=== PATIENT | female | born 1965 | race Caucasian/White ===

== ENCOUNTER 2018-11-02 08:00 | Observation (INO) ==
[2018-11-02] MEDS ORDERED: 0.9 % Sodium Chloride 500 ML IVC ONE (08:26)
[2018-11-02] MEDS ORDERED: Aspirin 81 MG TAB.CHEW PO ONE (08:26)
--- NOTE | 2018-11-02 08:30 | Emergency Department Note ---
Disposition Clinical Impression: Chest pain Qualifiers: Chest pain type: unspecified Qualified Code(s): R07.9 - Chest pain, unspecified Disposition: Admitted As Inpatient Condition: Fair Referrals: Ayan Muñiz MD [Primary Care Provider] - Forms: ED Satisfaction Letter Time of Disposition: 10:51 General Adult HPI - General Chief complaint: ED Chest Pain Stated complaint: "chest pressure", DEBRA,V/D Time Seen by Provider: 11/02/18 08:02 Source: patient Mode of arrival: ambulatory Limitations: no limitations Nursing Notes Reviewed: Yes Vital Signs Reviewed: Yes - History of Present Illness HPI Narrative: 53-year-old female history of lupus, prediabetes, hypertension persists for evaluation of chest pain. Patient states she has had a prodromal GI illness with vomiting and diarrhea over the past 3 days but did note this morning that she developed some chest pain. Describes as pressure with intermittent episodes of heaviness. Located in the anterior part of her chest without radiation. Patient denies any diaphoresis. Patient denies any fevers or cough. Patient does state she had an episode of emesis. Patient denies a history of heart disease but does have a family history where her father had a heart attack at the age of 52. Patient denies a history of recent travel DVT or PE. Denies any active cancers. Pain Scale: 8 - Related Data Previous Rx's Medication Instructions Recorded predniSONE [PredniSONE] 0 mg PO DAILY #15 tablet 05/17/17 Ciprofloxacin [Cipro] 500 mg PO BID #14 tablet 07/04/17 Phenazopyridine HCl [Pyridium] 200 mg PO TIDAC #6 tab 07/04/17 Phenazopyridine HCl [Pyridium] 200 mg PO TIDAC PRN #6 tab 04/24/18 Allergies Allergy/AdvReac Type Severity Reaction Status Date / Time Erythromycin Base Allergy Hives Verified 11/02/18 08:07 meperidine [From Demerol] Allergy Hallucinati Verified 11/02/18 08:07 ng tramadol Allergy Confusion Verified 11/02/18 08:07 All systems ED: reviewed and negative except as stated. Constitutional: Denies: fever Cardiovascular: Reports: chest pain Respiratory: Denies: cough, dyspnea Gastrointestinal: Denies: abdominal pain, nausea, vomiting Past Medical History - Past Medical History Source: patient Medical history: Reports: non-contributory Surgical history: Reports: non-contributory Psychiatric history: Reports: no psych history FREELANCE RECRUITER history: Reports: no FREELANCE RECRUITER history - Social History Smoking Status: Never smoker Smokeless Tobacco Status: No Alcohol use: Reports: none Drug use: Reports: none Physical Exam - General Limitations: no limitations General appearance: alert, in no apparent distress, obese - Head Head exam: atraumatic, normocephalic, normal inspection - Eye Eye exam: Present: normal appearance, PERRL, EOMI - ENT ENT exam: normal exam - Neck Neck exam: Present: normal inspection - Chest Chest inspection: Present: normal inspection, symmetric chest wall rise - Respiratory Respiratory exam: Present: normal lung sounds bilaterally. Absent: respiratory distress - Cardiovascular Cardiovascular exam: Present: regular rate, normal rhythm. Absent: normal heart sounds - Abdominal Exam Abdominal exam: Present: soft, Non-Tender - Extremities Exam Extremities exam: Present: normal inspection. Absent: pedal edema - Back Exam Back exam: Present: normal inspection - Neurological Exam Neurological exam: Present: alert, oriented X3, CN II-XII intact - Skin Skin exam: Present: warm, dry, intact, normal color Course Course Narrative: Patient seen and examined. Patient will get basic Levi pulmonary screening labs. Patient is deemed low risk for DVT and/or PE. Patient's history is most consistent with ACS. Patient is 100% on room air. - Reevaluation(s) Reevaluation #1: Patient did get 1 nitroglycerin which did not improve her chest pain. Patient's agreeable with admission. Time: 10:12 Reevaluation #2: Patient is complaining of abdominal cramping. Nontender abdominal exam. Time: 10:21 Vital Signs Temperature 98.2 F 11/02/18 08:07 Pulse Rate 77 11/02/18 08:07 Respiratory Rate 15 11/02/18 08:07 Blood Pressure 163/101 11/02/18 08:07 Temperature 98.2 F 11/02/18 08:19 Pulse Rate 68 11/02/18 09:56 Respiratory Rate 20 11/02/18 09:56 Blood Pressure 133/67 11/02/18 09:56 O2 Sat by Pulse Oximetry 99 11/02/18 09:56 Oxygen Delivery Oxygen Delivery Room Air Medical Decision Making - [facility] Narrative Medical decision making narrative: Patient presents for a violation of chest pressure. Patient does have risk factors including lupus, diabetes and hypertension. As well as obesity and early family history. Patient's EKG was nonspecific. Initial troponin negative. Given the patient's moderate heart score the patient be admitted for continued evaluation. There is no concerns or suspicion of PE. Patient's pain appears to be more consistent with unstable angina. Patient's not hypoxic. Patient has no significant risk factors for PE in the acute setting. - Lab Data Lab results reviewed: Yes I reviewed the patient's lab results. Result diagrams: 11/02/18 08:36 11/02/18 08:36 Lab Results 11/02/18 11/02/18 11/02/18 Range/Units 08:26 08:26 08:36 WBC 5.2 (4.3-11.1) K/mcL RBC 4.58 (3.82-4.97) M/mcL Hgb 14.6 (11.5-15.4) g/dL Hct 43.7 (35.3-44.9) % MCV 95.4 (83.0-100.0) fL MCH 31.9 (28.0-33.3) pg MCHC 33.4 (31.6-35.5) g/dL RDW 14.0 (11.5-14.5) % Plt Count 178 (140-400) K/mcL MPV 11.6 (9.4-12.4) fL Immature Gran % 0.2 (0-4) % Seg Neutrophils % 57.5 % Lymphocytes % 29.8 % Monocytes % 7.9 % Eosinophils % 4.2 % Basophils % 0.4 % Neutrophils # 3.0 (1.6-8.9) K/mcL Lymphocytes # 1.6 (0.6-4.6) K/mcL Monocytes # 0.4 (0.0-1.3) K/mcL Eosinophils # 0.2 (0.0-0.6) K/mcL Basophils # 0.0 (0.0-0.2) K/mcL PT 10.6 (9.4-12.1) Seconds INR 0.9 APTT 21.3 L (26.0-36.0) Seconds Sodium (136-145) mEq/L Potassium (3.5-5.1) mEq/L Chloride (98-107) mEq/L Carbon Dioxide (23-29) mEq/L BUN (6-20) mg/dL Creatinine (0.60-1.20) mg/dL Est GFR ( Amer) (> 60) Est GFR (Non-Af Amer) (> 60) BUN/Creatinine Ratio (6-26) Glucose (70-105) mg/dL Calculated Osmolality (280-300) Calcium (8.6-10.3) mg/dL Troponin I (< 0.04) ng/mL B-Natriuretic Peptide 17 (Less than 100) pg/mL Lipase (11-82) Units/L 11/02/18 Range/Units 08:36 WBC (4.3-11.1) K/mcL RBC (3.82-4.97) M/mcL Hgb (11.5-15.4) g/dL Hct (35.3-44.9) % MCV (83.0-100.0) fL MCH (28.0-33.3) pg MCHC (31.6-35.5) g/dL RDW (11.5-14.5) % Plt Count (140-400) K/mcL MPV (9.4-12.4) fL Immature Gran % (0-4) % Seg Neutrophils % % Lymphocytes % % Monocytes % % Eosinophils % % Basophils % % Neutrophils # (1.6-8.9) K/mcL Lymphocytes # (0.6-4.6) K/mcL Monocytes # (0.0-1.3) K/mcL Eosinophils # (0.0-0.6) K/mcL Basophils # (0.0-0.2) K/mcL PT (9.4-12.1) Seconds INR APTT (26.0-36.0) Seconds Sodium 141 (136-145) mEq/L Potassium 4.3 (3.5-5.1) mEq/L Chloride 108 H (98-107) mEq/L Carbon Dioxide 25 (23-29) mEq/L BUN 7 (6-20) mg/dL Creatinine 0.92 (0.60-1.20) mg/dL Est GFR ( Amer) > 60 (> 60) Est GFR (Non-Af Amer) > 60 (> 60) BUN/Creatinine Ratio 8 (6-26) Glucose 131 H (70-105) mg/dL Calculated Osmolality 292 (280-300) Calcium 9.6 (8.6-10.3) mg/dL Troponin I < 0.03 (< 0.04) ng/mL B-Natriuretic Peptide (Less than 100) pg/mL Lipase 25 (11-82) Units/L - Radiology Data Radiology results reviewed: Yes I reviewed the patient's radiology results. Chest X-Ray 11/02/18 08:26 IMPRESSION: No acute cardiopulmonary disease D/ / Mynor Almanzar MD / Mynor Almanzar MD Interpreting Provider: Mynor Almanzar MD - EKG Data EKG #1 EKG attestation: Yes I reviewed and interpreted this EKG. EKG shows normal: sinus rhythm Rate: normal Rhythm: NSR [place]/QRS: left axis deviation T wave inversions noted in: III (FLATTENED), aVF (FLATTENED) Jose Miguel - Jose Miguel Situation: Demographics Background: Presenting Complaint Assessment: Vital Signs, Course and respsone to treatment, Patient/Family Ex pectation Recommendation: Barrier(s) to disposition, Recommendation based on pending studies, treatments, or consults Jose Miguel Report Given to: Hospitalist Jose Miguel Repor Time: 10:51 Heart Score - Score History: Moderately Suspicious Age: 45-65 Risk Factors: 1-2 risk factors Troponin: Less than normal limit
[2018-11-02 09:07] LABS: Basophils % 0.4 %; Eosinophils # 0.2 K/mcL (0.0-0.6); Eosinophils % 4.2 %; Hematocrit 43.7 % (35.3-44.9); Hemoglobin 14.6 g/dL (11.5-15.4); Immature Granulocytes % 0.2 % (0-4); Lymphocytes # 1.6 K/mcL (0.6-4.6); Lymphocytes % 29.8 %; Mean Corpuscular HGB Conc 33.4 g/dL (31.6-35.5); Mean Corpuscular Hemoglobin 31.9 pg (28.0-33.3); Mean Corpuscular Volume 95.4 fL (83.0-100.0); Mean Platelet Volume 11.6 fL (9.4-12.4); Monocytes # 0.4 K/mcL (0.0-1.3); Monocytes % 7.9 %; Platelet Count 178 K/mcL (140-400); Red Blood Count 4.58 M/mcL (3.82-4.97); Segmented Neutrophils % 57.5 %
[2018-11-02] MEDS: Nitroglycerin 0.4 MG TAB.SUBL SL PRN ×5 (09:24→15:49)
[2018-11-02 09:25] LABS: BUN/Creatinine Ratio 8 (6-26); Blood Urea Nitrogen 7 mg/dL (6-20); Calcium 9.6 mg/dL (8.6-10.3); Carbon Dioxide 25 mEq/L (23-29); Chloride 108 mEq/L (98-107); Glucose 131 mg/dL (70-105); Lipase 25 Units/L (11-82); Osmolality,Calculated 292 (280-300); Potassium 4.3 mEq/L (3.5-5.1); Sodium 141 mEq/L (136-145); Troponin I < 0.03 ng/mL (< 0.04); eGFR For Non-African Americans > 60 (> 60)
--- NOTE | 2018-11-02 10:00 | Emergency Department Note ---
Disposition Clinical Impression: Chest pain Qualifiers: Chest pain type: unspecified Qualified Code(s): R07.9 - Chest pain, unspecified Disposition: Admitted As Inpatient Condition: Fair Time of Disposition: 14:18 General Adult HPI - General Chief complaint: ED Chest Pain Stated complaint: "chest pressure", DEBRA,V/D Time Seen by Provider: 11/02/18 08:02 Source: patient Mode of arrival: ambulatory Limitations: no limitations - History of Present Illness Pain Scale: 0 - Related Data Previous Rx's Medication Instructions Recorded predniSONE [PredniSONE] 0 mg PO DAILY #15 tablet 05/17/17 Ciprofloxacin [Cipro] 500 mg PO BID #14 tablet 07/04/17 Phenazopyridine HCl [Pyridium] 200 mg PO TIDAC #6 tab 07/04/17 Phenazopyridine HCl [Pyridium] 200 mg PO TIDAC PRN #6 tab 04/24/18 Allergies Allergy/AdvReac Type Severity Reaction Status Date / Time Erythromycin Base Allergy Hives Verified 11/02/18 08:07 meperidine [From Demerol] Allergy Hallucinati Verified 11/02/18 08:07 ng tramadol Allergy Confusion Verified 11/02/18 08:07 Constitutional: Denies: fever Cardiovascular: Reports: chest pain Respiratory: Denies: cough, dyspnea Gastrointestinal: Denies: abdominal pain, nausea, vomiting Past Medical History - Past Medical History Medical history: Reports: non-contributory Surgical history: Reports: non-contributory Psychiatric history: Reports: no psych history ANAESTHESIOLOGIST history: Reports: no ANAESTHESIOLOGIST history - Social History Smoking Status: Never smoker Smokeless Tobacco Status: No Alcohol use: Reports: none Drug use: Reports: none Physical Exam - General Limitations: no limitations General appearance: alert, in no apparent distress, obese Course Vital Signs Temperature 98.2 F 11/02/18 08:07 Pulse Rate 77 11/02/18 08:07 Respiratory Rate 15 11/02/18 08:07 Blood Pressure 163/101 11/02/18 08:07 Temperature 97.9 F 11/02/18 14:03 Pulse Rate 59 11/02/18 14:03 Respiratory Rate 15 11/02/18 14:03 Blood Pressure 124/74 11/02/18 14:03 O2 Sat by Pulse Oximetry 94 11/02/18 14:03 Oxygen Delivery Oxygen Delivery Room Air Medical Decision Making - Lab Data Result diagrams: 11/02/18 08:36 11/02/18 08:36 Lab Results 11/02/18 11/02/18 11/02/18 Range/Units 08:26 08:26 08:36 WBC 5.2 (4.3-11.1) K/mcL RBC 4.58 (3.82-4.97) M/mcL Hgb 14.6 (11.5-15.4) g/dL Hct 43.7 (35.3-44.9) % MCV 95.4 (83.0-100.0) fL MCH 31.9 (28.0-33.3) pg MCHC 33.4 (31.6-35.5) g/dL RDW 14.0 (11.5-14.5) % Plt Count 178 (140-400) K/mcL MPV 11.6 (9.4-12.4) fL Immature Gran % 0.2 (0-4) % Seg Neutrophils % 57.5 % Lymphocytes % 29.8 % Monocytes % 7.9 % Eosinophils % 4.2 % Basophils % 0.4 % Neutrophils # 3.0 (1.6-8.9) K/mcL Lymphocytes # 1.6 (0.6-4.6) K/mcL Monocytes # 0.4 (0.0-1.3) K/mcL Eosinophils # 0.2 (0.0-0.6) K/mcL Basophils # 0.0 (0.0-0.2) K/mcL PT 10.6 (9.4-12.1) Seconds INR 0.9 APTT 21.3 L (26.0-36.0) Seconds Sodium (136-145) mEq/L Potassium (3.5-5.1) mEq/L Chloride (98-107) mEq/L Carbon Dioxide (23-29) mEq/L BUN (6-20) mg/dL Creatinine (0.60-1.20) mg/dL Est GFR ( Amer) (> 60) Est GFR (Non-Af Amer) (> 60) BUN/Creatinine Ratio (6-26) Glucose (70-105) mg/dL Calculated Osmolality (280-300) Calcium (8.6-10.3) mg/dL Troponin I (< 0.04) ng/mL B-Natriuretic Peptide 17 (Less than 100) pg/mL Lipase (11-82) Units/L 11/02/18 Range/Units 08:36 WBC (4.3-11.1) K/mcL RBC (3.82-4.97) M/mcL Hgb (11.5-15.4) g/dL Hct (35.3-44.9) % MCV (83.0-100.0) fL MCH (28.0-33.3) pg MCHC (31.6-35.5) g/dL RDW (11.5-14.5) % Plt Count (140-400) K/mcL MPV (9.4-12.4) fL Immature Gran % (0-4) % Seg Neutrophils % % Lymphocytes % % Monocytes % % Eosinophils % % Basophils % % Neutrophils # (1.6-8.9) K/mcL Lymphocytes # (0.6-4.6) K/mcL Monocytes # (0.0-1.3) K/mcL Eosinophils # (0.0-0.6) K/mcL Basophils # (0.0-0.2) K/mcL PT (9.4-12.1) Seconds INR APTT (26.0-36.0) Seconds Sodium 141 (136-145) mEq/L Potassium 4.3 (3.5-5.1) mEq/L Chloride 108 H (98-107) mEq/L Carbon Dioxide 25 (23-29) mEq/L BUN 7 (6-20) mg/dL Creatinine 0.92 (0.60-1.20) mg/dL Est GFR ( Amer) > 60 (> 60) Est GFR (Non-Af Amer) > 60 (> 60) BUN/Creatinine Ratio 8 (6-26) Glucose 131 H (70-105) mg/dL Calculated Osmolality 292 (280-300) Calcium 9.6 (8.6-10.3) mg/dL Troponin I < 0.03 (< 0.04) ng/mL B-Natriuretic Peptide (Less than 100) pg/mL Lipase 25 (11-82) Units/L Attestation Statement - Attestation Attestation: I examined this patient and my medical decision-making was reviewed with the Resident Physician. I agree with the documented findings, disposition and treatment plan as described except to the extent set forth below. 53 year old female presents to the eD with complaints of chest pain and has a moderate risk heart score in addition to negative troponin, non ischemic ekg. Will admit to medicine for cp r/o ACS
--- NOTE | 2018-11-02 14:21 | Internal Med History&Physical ---
Date of Encounter: 12/03/18 Time of Encounter: 11:00 Internal Medicine - H&P: HPI Chief complaint: CP History of present illness: 53-year-old female history of lupus, prediabetes, hypertension who presented to the ER for further evaluation of chest pain The patient is stated that she started having some nausea associated with vomiting over the last 3 days, however she developed this morning shows intermittent episode of chest pressure. the patient is located at the mid chest was not radiation. the patient denied diaphoresis, palpitation, orthopnea, paroxysmal nocturnal dyspnea or worsening lower extremity edema. the patient denies history of coronary artery disease however she reported that her father due to heart at thatage of 52. the patient was evaluated by the ER staff and had an first cardiac enzyme set was no significant abnormality as well as a EKG was significant ST-T wave changes. Past Med Surg Social Fam HX - Past Medical History Medical history: diabetes Additional medical history: liver enzymes "off". pre diabetic. lupus Psychiatric history: no psych history - Past Surgical History Surgical History: cholecystectomy - Social History Smoking Status: Never smoker Smokeless Tobacco Status: No Alcohol use: none Drug use: none - Family History Father Living Status: Hx Family Cardiac Disorders: Yes (ND) Hx Family Endocrine Disorder: Yes (DM) Internal Medicine - H&P: Meds Amitriptyline [Elavil] 25 mg PO HS 11/02/18 [History] Aspirin 81 mg PO DAILY 11/02/18 [History] Azelastine 0.1% Nasal [place] [Astelin] 1 spr NS BID 11/02/18 [History] Cetirizine HCl [24Hour Allergy] 10 mg PO DAILY 11/02/18 [History] Diclofenac Sodium 2 - 3 gm TP BID PRN 11/02/18 [History] Lisinopril [Zestril] 10 mg PO DAILY 11/02/18 [History] Montelukast [Singulair] 10 mg PO DAILY 11/02/18 [History] Paroxetine [Paxil] 20 mg PO DAILY 11/02/18 [History] metFORMIN [Glucophage] 500 mg PO BIDWM 11/02/18 [History] Fluticasone Propionate Nasal [Flonase] 1 spr NS BID 11/03/18 [History] Omeprazole [PriLOSEC] 40 mg PO BID #60 capsule. 11/04/18 [Rx] Allergy/AdvReac Type Severity Reaction Status Date / Time Erythromycin Base Allergy Hives Verified 11/03/18 23:19 meperidine [From Demerol] Allergy Hallucinati Verified 11/03/18 23:19 ng tramadol Allergy Confusion Verified 11/03/18 23:19 itching anaphalaxis All Systems PM: A 10-system review of systems was performed and is negative for pertinent findings except as documented above in the HPI. - Constitutional Vitals: Temp Pulse Resp BP Pulse Ox 97.9 F 59 15 124/74 94 11/02/18 14:03 11/02/18 14:03 11/02/18 14:03 11/02/18 14:03 11/02/18 14:03 Exam: As below - Head Head exam: Present: atraumatic, normocephalic - Eye Eye exam: Present: PERRL, conjuntiva pink, sclera anicteric Pupils: Present: PERRL - Neck Neck exam general surgery: Present: supple, trachea midline. Absent: lymphadenopathy - Respiratory Respiratory exam: Present: CTAB. Absent: accessory muscle use, rales, rhonchi, wheezes - Cardiovascular Cardiovascular exam: Present: RRR, +S1, +S2. Absent: diastolic murmur, gallop, rubs, systolic murmur - GI/Abdominal GI/Abdominal exam: Present: normal bowel sounds, soft, no peritoneal signs. Absent: distended, tenderness - Extremities Exam Extremities exam: Present: warm, radial pulses palpable and symmetrical. Absent: calf tenderness, cyanotic, pedal edema - Neurological Exam Neurological exam: Present: CN II-XII intact, oriented X3, no focal deficits. Absent: pronater drift, facial droop, speech deficit - Skin Skin exam: Present: dry, intact Internal Med - H&P Results - Labs CBC & Chem 7: 11/03/18 03:41 11/03/18 03:41 Labs: Short CBC 11/02/18 Range/Units 08:36 WBC 5.2 (4.3-11.1) K/mcL Hgb 14.6 (11.5-15.4) g/dL Hct 43.7 (35.3-44.9) % Plt Count 178 (140-400) K/mcL Neutrophils # 3.0 (1.6-8.9) K/mcL BMP 11/02/18 08:36 Sodium 141 Potassium 4.3 Chloride 108 H Carbon Dioxide 25 BUN 7 Creatinine 0.92 Glucose 131 H Calcium 9.6 Cardiac Enzymes 11/02/18 Range/Units 08:36 Troponin I < 0.03 (< 0.04) ng/mL - Impressions ITS Impressions Chest X-Ray 11/02/18 08:26 IMPRESSION: No acute cardiopulmonary disease D/ / Mynor Almanzar MD / Mynor Almanzar MD Interpreting Provider: Mynor Almanzar MD - Assessment and Plan (1) Chest pain Status: Acute Assessment and plan: ASSESSMENT: - Chest pain DD *CAD *Muskuloskeletal CP - myofascial strain, costochondritis *GERD *Esophageal spasm *Pericarditis - unlikely *Pneumonia - no infiltrate on CXR PLAN: - cardiac enzymes x 2 q 8 hr - EKG now and in AM - ASA - O2 by NC to keep SpO2 greater than 92% - UA - CBCD, BMP in AM - Fasting lipids - Morphine 2 mg IV q 2-4 hr PRN chest pain - Tylenol 650 mg PO q 4-6 hr PRN headache - Heparin 5000 U SQ BID - 2D Echo Qualifiers: Chest pain type: unspecified Qualified Code(s): R07.9 - Chest pain, unspecified (2) Prediabetes Status: Acute Assessment and plan: We will obtain HA1C (3) Morbid obesity Status: Acute (4) DVT prophylaxis Status: Acute - Time Spent With Patient Total time spent is greater than 50% in coordination of care (as documented) at patient's floor/unit and/or counseling patient:
[2018-11-02] MEDS ORDERED: Ondansetron 4 MG/2 ML VIAL IVP PRN (14:59)
[2018-11-02] MEDS ORDERED: Naloxone 0.4 MG/ML INJ IVP PRN (14:59)
[2018-11-02] MEDS: 0.9 % Sodium Chloride 1,000 ML IVC SCH ×2 (15:49→21:26)
[2018-11-02] MEDS ORDERED: Hyoscyamine 0.5 MG/ML MLS IVP ONE (22:17)
[2018-11-02] MEDS: Loratadine 10 MG TABLET PO SCH (23:05)
[2018-11-03 05:04] LABS: Hematocrit 39.7 % (35.3-44.9); Hemoglobin 13.1 g/dL (11.5-15.4); Mean Corpuscular Hemoglobin 31.9 pg (28.0-33.3); Mean Corpuscular Volume 96.6 fL (83.0-100.0); Mean Platelet Volume 11.9 fL (9.4-12.4); Platelet Count 153 K/mcL (140-400); Red Blood Count 4.11 M/mcL (3.82-4.97); Red Cell Distribution Width 13.9 % (11.5-14.5); Segmented Neutrophils % 51.7 %
[2018-11-03 05:05] LABS: Basophils % 0.5 %; Eosinophils # 0.2 K/mcL (0.0-0.6); Eosinophils % 3.2 %; Immature Granulocytes % 0.2 % (0-4); Lymphocytes # 1.9 K/mcL (0.6-4.6); Lymphocytes % 34.6 %; Monocytes # 0.6 K/mcL (0.0-1.3); Monocytes % 9.8 %; Neutrophils # 2.9 K/mcL (1.6-8.9)
[2018-11-03 05:14] LABS: Prothrombin Time 11.8 Seconds (9.4-12.1)
[2018-11-03 05:33] LABS: Activated Partial Thrombo Time 35.4 Seconds (26.0-36.0)
[2018-11-03 05:47] LABS: Troponin I < 0.03 ng/mL (< 0.04)
[2018-11-03 06:34] LABS: Alanine Aminotransferase 72 Units/L (7-52); Albumin 3.7 g/dL (3.5-5.7); Albumin/Globulin Ratio 1.4 (1.1-2.2); Alkaline Phosphatase 75 Units/L (34-104); BUN/Creatinine Ratio 13 (6-26); Bilirubin,Total 0.7 mg/dL (0.3-1.0); Blood Urea Nitrogen 12 mg/dL (6-20); Carbon Dioxide 21 mEq/L (23-29); Chloride 113 mEq/L (98-107); Chol/HDL Ratio 6.2 (0-4.9); Cholesterol 149 mg/dL (< 200); Globulin 2.7 g/dL (2.4-3.5); Glucose 100 mg/dL (70-105); HDL Cholesterol 24 mg/dL (40-59); LDL Cholesterol,Calculated 85 mg/dL (0-99); Magnesium 1.9 mg/dL (1.6-2.6); Osmolality,Calculated 290 (280-300); Phosphorous 3.3 mg/dL (2.7-4.5); Potassium 3.6 mEq/L (3.5-5.1); Sodium 140 mEq/L (136-145); Total Protein 6.4 g/dL (6.4-8.9); Triglycerides 200 mg/dL (< 150); eGFR For Non-African Americans > 60 (> 60)
[2018-11-03 07:44] LABS: Estimated Average Glucose 134 mg/dl; Hemoglobin A1C 6.3 %
[2018-11-03 07:48] LABS: Aspartate Amino Transferase 61 Units/L (13-39)
--- NOTE | 2018-11-03 08:05 | Electrocardiograph Report ---
[facility] Test Date: 2018-11-02 Pat Name: Angely Ashton Department: [id number] Room: 3B38 Gender: F Dye Lab Technician: : 1965 Requested By: Neil Anguiano Order Number: [id number] Reading MD: Cal Banks Measurements Intervals [place] Rate: 71 P: 0 IL: 155 QRS: -47 QRSD: 92 T: 18 QT: 427 QTc: 464 Interpretive Statements Sinus rhythm Left anterior fascicular block Low voltage, precordial leads Consider anterior infarct Electronically Signed On 11-03-2018 8:03:58 EDT by Cal Banks
[2018-11-03] MEDS ORDERED: Regadenoson 0.4 MG/5 ML SYRINGE IVP ONE (08:45)
[2018-11-03] MEDS ORDERED: Aspirin 325 MG TABLET PO SCH (09:00)
--- NOTE | 2018-11-03 09:26 | Electrocardiograph Report ---
[place] [address] Test Date: 2018-11-02 Pat Name: Angely Ashton Department: 113 Room: 3B38 Gender: F Well Treatment Offsider: : 1965 Requested By: Padmini Resendez Order Number: [id number] Reading MD: Alonso Salas Measurements Intervals [place] Rate: 66 P: 17 GA: 171 QRS: -46 QRSD: 89 T: 11 QT: 349 QTc: 362 Interpretive Statements SINUS RHYTHM LOW QRS VOLTAGE IN PRECORDIAL LEADS [QRS DEFLECTION < 1.0 mV IN CHEST LEADS] LEFT ANTERIOR FASCICULAR BLOCK [QRS AXIS <= -45, QR IN I, RS IN II] ANTERIOR MYOCARDIAL INFARCTION [30 ms Q WAVE IN V3/V4, OR R < 0.2 mV IN V4], PROBABLY OLD Electronically Signed On 11-03-2018 9:25:19 EDT by Alonso Salas
--- NOTE | 2018-11-03 09:42 | Electrocardiograph Report ---
[address] [place], [place] [address] Test Date: 2018-11-03 Pat Name: Angely Ashton Department: 113 Room: 3B38 Gender: F Billing Services Manager: : 1965 Requested By: Enoch Banda Order Number: [id number] Reading MD: Alonso Salas Measurements Intervals [place] Rate: 58 P: 23 CT: 187 QRS: -41 QRSD: 83 T: -16 QT: 412 QTc: 408 Interpretive Statements SINUS BRADYCARDIA WITH SINUS ARRHYTHMIA LEFT AXIS DEVIATION [QRS AXIS < -30] LOW QRS VOLTAGE IN PRECORDIAL LEADS [QRS DEFLECTION < 1.0 mV IN CHEST LEADS] PATTERN CONSISTENT WITH PULMONARY DISEASE Electronically Signed On 11-03-2018 9:40:25 EDT by Alonso Salas
[2018-11-03] MEDS ORDERED: *HR* LORazepam 1 MG TABLET PO ONE (10:16)
[2018-11-03] MEDS: Loratadine 10 MG TABLET PO SCH (11:31)
[2018-11-03] MEDS: (Fluticasone Propionate [Flovent Diskus] 50 MCG) IH SCH ×2 (11:34→20:36)
[2018-11-03] MEDS: Azelastine 0.1% Nasal Spray 30 ML BOTTLE NS SCH ×2 (11:35→20:35)
--- NOTE | 2018-11-03 13:07 | Internal Med Progress Note ---
Hospitalist Progress Note - Encounter Date of Encounter: 11/03/18 Time of Encounter: 11:35 - Subjective Interval History: Ms. Ashton is a 53-year-old female with known history of lupus, prediabetes, hypertension and morbid obesity pt who presented to the ER for further evaluation of chest pain. Pt stated her CP located substernally, she gets chest discomfort after she started eating. She did noticed some difficulty to sallow also. Her CP resolve an hours after she ate. Denied any left chest wall pain.. Denied any SOB. She does have nausea. She denied any sleep apnea. She denied any previous G.I work up. - Exam Vitals: Temp Pulse Resp BP Pulse Ox 98.0 F 59 17 120/77 95 11/03/18 11:48 11/03/18 11:48 11/03/18 11:48 11/03/18 11:48 11/03/18 11:48 Exam: Gen: Alert, awake, Oriented to time,place and person Chest: Diminished breath sounds B/L, No wheezing, No crackles, No rales Heart: S1S2+ RRR No murmurs Abd: Soft, NT, BS +, No organomegaly Ext: No edema, pulses are palpable, No calf tenderness Neuro : Benign findings Skin: No rash. - Assessment and Plan (1) Acute respiratory failure with hypoxia Current Visit: Yes Status: Acute Assessment and Plan: Mostly due to hypoventilation syndrome with morbid obesity May need out pt sleep studies Will do over night pulse oxy study may need home O2 eval too (2) Chest pain Current Visit: Yes Status: Acute Assessment and Plan: Atypical CP Mostly due to GERD / Dysphagia So far negative serial troponin No acute ischemic changes on EKG cont ASA 81mg Reviewed FLP - LDL @ 85 No further cardiac work up needed now started on PPI BID recommend GI work up - EGD, but pt wanted to try medications first (3) DVT prophylaxis Current Visit: Yes Status: Acute Assessment and Plan: on SQ Heparin (4) Prediabetes Current Visit: Yes Status: Acute Assessment and Plan: HbA1C 6.3 on ADA diet Recommend diet modifications (5) Morbid obesity Current Visit: Yes Status: Acute Assessment and Plan: counseled to loose weight and diet modifications - Time Spent with Patient Total time spent is greater than 50% in coordination of care (as documented) at patient's floor/unit and/or counseling patient: Internal Medicine: Result - Labs CBC & Chem 7: 11/03/18 03:41 11/03/18 03:41 Labs: Short CBC 11/03/18 Range/Units 03:41 WBC 5.6 (4.3-11.1) K/mcL Hgb 13.1 D (11.5-15.4) g/dL Hct 39.7 (35.3-44.9) % Plt Count 153 (140-400) K/mcL Neutrophils # 2.9 (1.6-8.9) K/mcL BMP 11/03/18 03:41 Sodium 140 Potassium 3.6 Chloride 113 H Carbon Dioxide 21 L BUN 12 Creatinine 0.89 Glucose 100 Calcium 9.0 Cardiac Enzymes 11/02/18 11/02/18 11/03/18 Range/Units 15:32 21:15 03:41 Troponin I < 0.03 < 0.03 < 0.03 (< 0.04) ng/mL Liver Function 11/03/18 Range/Units 03:41 Total Bilirubin 0.7 (0.3-1.0) mg/dL AST 61 H (13-39) Units/L ALT 72 H (7-52) Units/L Alkaline Phosphatase 75 (34-104) Units/L Albumin 3.7 (3.5-5.7) g/dL - ABG Interpretation ABG results: PT/INR, D-dimer PT 11.8 Seconds (9.4-12.1) 11/03/18 03:41 Consult Discharge Plan - Plan Referrals: Lynda Rai MD [Non-Partnered Physician] - (2) Chest pain Qualifiers: Chest pain type: unspecified Qualified Code(s): R07.9 - Chest pain, unspecified
[2018-11-03] MEDS: *HR* Heparin 5,000 UNIT/ML VIAL SQ SCH (17:12)
[2018-11-04] MEDS: *HR* Heparin 5,000 UNIT/ML VIAL SQ SCH (05:15)
[2018-11-04] MEDS ORDERED: Acetaminophen 325 MG TABLET PO PRN (09:09)
[2018-11-04] MEDS: Loratadine 10 MG TABLET PO SCH (09:17)
[2018-11-04] MEDS: Azelastine 0.1% Nasal Spray 30 ML BOTTLE NS SCH (09:18)
[2018-11-04] MEDS: (Fluticasone Propionate [Flovent Diskus] 50 MCG) IH SCH (09:18)
[2018-11-04 11:34] VITALS: BP 114/70
--- NOTE | 2018-11-04 12:10 | Discharge Summary ---
- NOTES TO OUTPATIENT PROVIDER Notes to Outpatient Provider: f/u with PCP in one week. f/u with GI in one week. Please use O2 at 2 lit night time Date of Encounter: 11/04/18 Time of Encounter: 12:05 - Discharge Diagnosis (1) Acute respiratory failure with hypoxia Priority: Primary Status: Acute (2) GERD (gastroesophageal reflux disease) Priority: Primary Status: Acute Qualifiers: Esophagitis presence: esophagitis presence not specified Qualified Code(s): K21.9 - Gastro-esophageal reflux disease without esophagitis (3) Dysphagia Priority: Secondary Status: Acute Qualifiers: Dysphagia type: esophageal phase Qualified Code(s): R13.10 - Dysphagia, unspecified (4) Chest pain Priority: Primary Status: Acute Qualifiers: Chest pain type: unspecified Qualified Code(s): R07.9 - Chest pain, unspecified (5) DVT prophylaxis Priority: Secondary Status: Acute (6) Prediabetes Priority: Secondary Status: Acute (7) Morbid obesity Priority: Secondary Status: Acute Hospital course: Ms. Ashton is a 53-year-old female with known history of lupus, prediabetes, hypertension and morbid obesity pt who presented to the ER for further evaluation of chest pain. Pt stated her CP located substernally, she gets chest discomfort after she started eating. She did noticed some difficulty to sallow also. Her CP resolve an hours after she ate. Denied any left chest wall pain.. Denied any SOB. She does have nausea. She denied any sleep apnea. She denied any previous G.I work up. She was admitted in the hospital and placed on cardiac technician. Her serial troponin came back as negative. Her's chest pain seems to be atypical and mostly due to GERD. She was placed on Prilosec 40 BID and now pt stated her symptoms improved. She denied any more CP. She does have JACQUELIN, I did overnight pulse oxy study, she did qualify for 2 lit O2 at night time. Will d/c her home in stable condition today. - Time Spent with Patient Total time spent providing and/or coordinating discharge services: - Discharge Medications Prescriptions: Continued Paroxetine [Paxil] 20 mg PO DAILY Montelukast [Singulair] 10 mg PO DAILY metFORMIN [Glucophage] 500 mg PO BIDWM Lisinopril [Zestril] 10 mg PO DAILY Diclofenac Sodium 2 - 3 gm TP BID PRN PRN Reason: Pain Cetirizine HCl [24Hour Allergy] 10 mg PO DAILY Azelastine 0.1% Nasal [place] [Astelin] 1 spr NS BID Amitriptyline [Elavil] 25 mg PO HS Aspirin 81 mg PO DAILY Fluticasone Propionate Nasal [Flonase] 1 spr NS BID Changed Omeprazole [PriLOSEC] 40 mg PO BID #60 capsule. Discontinued Ibuprofen 800 mg PO TID PRN PRN Reason: Pain Home Medications: Amitriptyline [Elavil] 25 mg PO HS 11/02/18 [History] Aspirin 81 mg PO DAILY 11/02/18 [History] Azelastine 0.1% Nasal [place] [Astelin] 1 spr NS BID 11/02/18 [History] Cetirizine HCl [24Hour Allergy] 10 mg PO DAILY 11/02/18 [History] Diclofenac Sodium 2 - 3 gm TP BID PRN 11/02/18 [History] Lisinopril [Zestril] 10 mg PO DAILY 11/02/18 [History] Montelukast [Singulair] 10 mg PO DAILY 11/02/18 [History] Paroxetine [Paxil] 20 mg PO DAILY 11/02/18 [History] metFORMIN [Glucophage] 500 mg PO BIDWM 11/02/18 [History] Fluticasone Propionate Nasal [Flonase] 1 spr NS BID 11/03/18 [History] Omeprazole [PriLOSEC] 40 mg PO BID #60 capsule. 11/04/18 [Rx] Allergies/Adverse Reactions: Allergy/AdvReac Type Severity Reaction Status Date / Time Erythromycin Base Allergy Hives Verified 11/03/18 23:19 meperidine [From Demerol] Allergy Hallucinati Verified 11/03/18 23:19 ng tramadol Allergy Confusion Verified 11/03/18 23:19 itching anaphalaxis Date of admission: 11/02/18 11:08 Primary care physician: Ayan Muñiz - Constitutional Vitals: Temp Pulse Resp BP Pulse Ox 97.6 F 67 16 114/70 96 11/04/18 11:24 11/04/18 11:24 11/04/18 11:24 11/04/18 11:24 11/04/18 11:24 General appearance: Present: cooperative, A&O X 3, no acute distress, answers questions appropriately Exam: Gen: Alert, awake, Oriented to time,place and person Chest: Diminished breath sounds B/L, No wheezing, No crackles, No rales Heart: S1S2+ RRR No murmurs Abd: Soft, NT, BS +, No organomegaly Ext: No edema, pulses are palpable, No calf tenderness Neuro : No acute focal neuro deficits noticed Skin: No rash. - Patient Status Disposition: Home, Self-Care Condition: Good Overall status at discharge: patient is back to baseline - Discharge Instructions Follow Up With: Ayan Muñiz MD [Primary Care Provider] - 11/17/18 3:30 pm Makeda De Luna MD [Partnered Physician] - - Diet and Activity Activity: wear oxygen at night Diet: low salt diet
== END 2018-11-04 16:12 | disposition home or self-care (01) ==
LOC: EMEROOARM 08:00 → 3BNU 08:00 → SUATTDRO 11:08 → 3BNU 13:06
PROVIDERS: ADMIT Internal Medicine Nephrology; ATTEND Family Medicine

== ENCOUNTER 2020-12-05 18:02 | Inpatient (IN) ==
[2020-12-05] MEDS ORDERED: Ondansetron 4 MG/2 ML VIAL IVP ONE ×2 (19:13→21:40)
[2020-12-05] MEDS ORDERED: 0.9 % Sodium Chloride 1,000 ML IVC ONE ×2 (19:15→21:55)
[2020-12-05] MEDS ORDERED: *HR* FentaNYL (PF) 100 MCG/2 ML VIAL IVP ONE (20:08)
[2020-12-05 21:10] LABS: Basophils % 0.4 %; Eosinophils # 0.1 K/mcL (0.0-0.6); Eosinophils % 0.8 %; Hematocrit 45.3 % (35.3-44.9); Hemoglobin 14.7 g/dL (11.5-15.4); Immature Granulocytes % 0.3 % (0-4); Lymphocytes # 1.6 K/mcL (0.6-4.6); Lymphocytes % 20.3 %; Mean Corpuscular HGB Conc 32.5 g/dL (31.6-35.5); Mean Corpuscular Hemoglobin 30.8 pg (28.0-33.3); Mean Corpuscular Volume 94.8 fL (83.0-100.0); Mean Platelet Volume 11.9 fL (9.4-12.4); Monocytes # 1.1 K/mcL (0.0-1.3); Monocytes % 14.5 %; Platelet Count 243 K/mcL (140-400); Red Blood Count 4.78 M/mcL (3.82-4.97); Red Cell Distribution Width 14.1 % (11.5-14.5); Segmented Neutrophils % 63.7 %; White Blood Count 7.9 K/mcL (4.3-11.1)
[2020-12-05 21:33] LABS: Albumin 4.4 g/dL (3.5-5.7); Albumin/Globulin Ratio 1.3 (1.1-2.2); Bilirubin,Direct 0.2 mg/dL (0.0-0.2); Bilirubin,Indirect 0.9 mg/dL (0.0-1.0); Bilirubin,Total 1.1 mg/dL (0.3-1.0); Calcium 9.9 mg/dL (8.6-10.3); Globulin 3.5 g/dL (2.4-3.5); Potassium 4.4 mEq/L (3.5-5.1); Total Protein 7.9 g/dL (6.4-8.9)
[2020-12-05] MEDS ORDERED: Ondansetron 4 MG/2 ML VIAL ONE (21:42)
[2020-12-05] MEDS ORDERED: 0.9 % Sodium Chloride 1,000 ML ONE (22:38)
[2020-12-05 22:42] LABS: Adenovirus F 40/41 PCR Not detected (Not detect); Astrovirus PCR Not detected (Not detect); C.difficile Toxin A/B Gene PCR Not detected (Not detect); Campylobacter by PCR DETECTED (Not detect); Cryptosporidium by PCR Not detected (Not detect); Cyclospora cayetanensis PCR Not detected (Not detect); E. coli O157 by PCR Not detected (Not detect); Entamoeba histolytica PCR Not detected (Not detect); Enteroaggregative E.coli(EAEC) DETECTED (Not detect); Enteropathogenic E.coli(EPEC) Not detected (Not detect); Enterotoxigenic E.coli (ETEC) Not detected (Not detect); Giardia lamblia PCR Not detected (Not detect); Norovirus GI/GII PCR Not detected (Not detect); Plesiomonas shigelloides PCR Not detected (Not detect); Rotavirus A PCR Not detected (Not detect); Salmonella PCR Not detected (Not detect); Sapovirus PCR Not detected (Not detect); Shig/EnteroinvasiveE coli EIEC Not detected (Not detect); Shigalike tox-prod E coli STEC Not detected (Not detect); Vibrio PCR Not detected (Not detect); Vibrio cholerae PCR Not detected (Not detect); Yersinia enterocolitica PCR Not detected (Not detect)
[2020-12-05] MEDS ORDERED: MetroNIDAZOLE 500 MG/100 ML 500 MG/100 ML BAG IVPB ONE (23:17)
[2020-12-06] MEDS ORDERED: Naloxone 0.4 MG/ML INJ IVP PRN (02:24)
[2020-12-06] MEDS ORDERED: 0.9 % Sodium Chloride 1,000 ML IVC SCH (02:30)
[2020-12-06] MEDS ORDERED: D5% in Water 1,000 ML IVC PRN (02:59)
[2020-12-06] MEDS ORDERED: *HR* Dextrose 50 % in Water (Vial) 50 ML VIAL IVP PRN (02:59)
[2020-12-06] MEDS ORDERED: Dextrose Gel 15 GM/37.5 ML TUBE PO PRN ×2 (02:59)
[2020-12-06] MEDS ORDERED: *HR* Heparin 5,000 UNIT/ML VIAL SQ SCH (06:00)
[2020-12-06] MEDS ORDERED: Insulin LISPRO 300 UNITS/3 ML VIAL SUBQ SCH (06:00)
[2020-12-06] MEDS: Aspirin 81 MG TAB.CHEW PO SCH (08:43)
[2020-12-06] MEDS: Fluticasone Propionate Nasal 50 MCG/SPRAY BOTTLE NS SCH ×2 (08:43→21:44)
[2020-12-06] MEDS: Loratadine 10 MG TABLET PO SCH (08:43)
[2020-12-06] MEDS: MetroNIDAZOLE 500 MG/100 ML 500 MG/100 ML BAG IVPB SCH ×2 (08:44→15:24)
[2020-12-06 11:17] LABS: Albumin 3.9 g/dL (3.5-5.7); Albumin/Globulin Ratio 1.3 (1.1-2.2); Calcium 8.7 mg/dL (8.6-10.3); Globulin 2.9 g/dL (2.4-3.5); Potassium 3.8 mEq/L (3.5-5.1); Total Protein 6.8 g/dL (6.4-8.9)
[2020-12-06] MEDS: Insulin LISPRO 300 UNITS/3 ML VIAL SUBQ SCH ×3 (11:57→21:27)
[2020-12-06] MEDS ORDERED: 0.9 % Sodium Chloride 1,000 ML IVC ONE (12:09)
[2020-12-06] MEDS: 0.9 % Sodium Chloride 1,000 ML IVC SCH ×2 (14:02→21:44)
[2020-12-06] MEDS: Albuterol 2.5 MG/3 ML NEBULIZER IH SCH ×2 (16:30→22:22)
[2020-12-06] MEDS: Ondansetron 4 MG/2 ML VIAL IVP PRN (18:11)
[2020-12-06] MEDS: PARoxetine 20 MG TABLET PO SCH (21:43)
[2020-12-06] MEDS: Budesonide/Formoterol 80/4.5 1 PUFF INH IH SCH (22:22)
[2020-12-07] MEDS ORDERED: Prochlorperazine 10 MG/2 ML VIAL IVP PRN (00:46)
[2020-12-07] MEDS: MetroNIDAZOLE 500 MG/100 ML 500 MG/100 ML BAG IVPB SCH ×2 (01:46→11:32)
[2020-12-07] MEDS: Ondansetron 4 MG/2 ML VIAL IVP PRN ×2 (04:08→14:46)
[2020-12-07 07:27] LABS: Hemoglobin 12.5 g/dL (11.5-15.4); Mean Corpuscular HGB Conc 32.1 g/dL (31.6-35.5); Mean Corpuscular Hemoglobin 30.7 pg (28.0-33.3); Mean Corpuscular Volume 95.8 fL (83.0-100.0); Mean Platelet Volume 11.9 fL (9.4-12.4); Platelet Count 174 K/mcL (140-400); Red Blood Count 4.07 M/mcL (3.82-4.97); Red Cell Distribution Width 14.2 % (11.5-14.5); White Blood Count 6.5 K/mcL (4.3-11.1)
[2020-12-07 07:37] LABS: Calcium 8.6 mg/dL (8.6-10.3); Potassium 4.3 mEq/L (3.5-5.1)
[2020-12-07] MEDS: Budesonide/Formoterol 80/4.5 1 PUFF INH IH SCH ×2 (07:43→22:19)
[2020-12-07] MEDS: Albuterol 2.5 MG/3 ML NEBULIZER IH SCH ×3 (07:43→22:20)
[2020-12-07] MEDS: Insulin LISPRO 300 UNITS/3 ML VIAL SUBQ SCH ×4 (07:43→21:33)
[2020-12-07] MEDS: Loratadine 10 MG TABLET PO SCH (08:31)
[2020-12-07] MEDS: Fluticasone Propionate Nasal 50 MCG/SPRAY BOTTLE NS SCH ×2 (08:31→21:38)
[2020-12-07] MEDS: Aspirin 81 MG TAB.CHEW PO SCH (08:31)
[2020-12-07] MEDS: Lactobacillus 1 EACH CAP.SPRINK PO SCH ×2 (11:32→21:37)
[2020-12-07] MEDS: Acetaminophen 325 MG TABLET PO PRN ×2 (14:42→21:44)
[2020-12-07] MEDS: PARoxetine 20 MG TABLET PO SCH (21:37)
[2020-12-08] MEDS: Albuterol 2.5 MG/3 ML NEBULIZER IH SCH ×3 (07:25→22:18)
[2020-12-08] MEDS: Budesonide/Formoterol 80/4.5 1 PUFF INH IH SCH ×2 (07:25→22:18)
[2020-12-08 07:47] LABS: Hematocrit 38.1 % (35.3-44.9); Hemoglobin 12.5 g/dL (11.5-15.4); Mean Corpuscular HGB Conc 32.8 g/dL (31.6-35.5); Mean Corpuscular Hemoglobin 31.9 pg (28.0-33.3); Mean Corpuscular Volume 97.2 fL (83.0-100.0); Mean Platelet Volume 11.2 fL (9.4-12.4); Platelet Count 148 K/mcL (140-400); Red Blood Count 3.92 M/mcL (3.82-4.97); Red Cell Distribution Width 14.2 % (11.5-14.5); White Blood Count 5.4 K/mcL (4.3-11.1)
[2020-12-08 08:07] LABS: BUN/Creatinine Ratio 13 (6-26); Blood Urea Nitrogen 14 mg/dL (6-20); Calcium 8.9 mg/dL (8.6-10.3); Carbon Dioxide 21 mEq/L (23-29); Chloride 107 mEq/L (98-107); Glucose 147 mg/dL (70-105); Osmolality,Calculated 295 (280-300); Potassium 4.2 mEq/L (3.5-5.1); Sodium 141 mEq/L (136-145); eGFR For African Americans > 60 (> 60); eGFR For Non-African Americans 53 (> 60)
[2020-12-08] MEDS: Lactobacillus 1 EACH CAP.SPRINK PO SCH ×2 (08:24→21:49)
[2020-12-08] MEDS: Loratadine 10 MG TABLET PO SCH (08:24)
[2020-12-08] MEDS: Aspirin 81 MG TAB.CHEW PO SCH (08:24)
[2020-12-08] MEDS: Fluticasone Propionate Nasal 50 MCG/SPRAY BOTTLE NS SCH ×2 (08:24→21:48)
[2020-12-08] MEDS: Insulin LISPRO 300 UNITS/3 ML VIAL SUBQ SCH ×4 (08:29→21:50)
[2020-12-08] MEDS: Ondansetron 4 MG/2 ML VIAL IVP PRN (08:36)
[2020-12-08] MEDS: PARoxetine 20 MG TABLET PO SCH (21:49)
[2020-12-08] MEDS: Acetaminophen 325 MG TABLET PO PRN (21:58)
[2020-12-09] MEDS: Ondansetron 4 MG/2 ML VIAL IVP PRN (02:12)
[2020-12-09] MEDS: Albuterol 2.5 MG/3 ML NEBULIZER IH SCH ×2 (07:59→15:05)
[2020-12-09] MEDS: Insulin LISPRO 300 UNITS/3 ML VIAL SUBQ SCH ×2 (07:59→12:29)
[2020-12-09] MEDS: Budesonide/Formoterol 80/4.5 1 PUFF INH IH SCH (07:59)
[2020-12-09] MEDS: Fluticasone Propionate Nasal 50 MCG/SPRAY BOTTLE NS SCH (08:03)
[2020-12-09] MEDS: Loratadine 10 MG TABLET PO SCH (09:02)
[2020-12-09] MEDS: Aspirin 81 MG TAB.CHEW PO SCH (09:02)
[2020-12-09] MEDS: Lactobacillus 1 EACH CAP.SPRINK PO SCH (09:02)
[2020-12-09 10:16] LABS: Hematocrit 40.1 % (35.3-44.9); Hemoglobin 12.7 g/dL (11.5-15.4); Mean Corpuscular HGB Conc 31.7 g/dL (31.6-35.5); Mean Corpuscular Hemoglobin 30.6 pg (28.0-33.3); Mean Corpuscular Volume 96.6 fL (83.0-100.0); Mean Platelet Volume 11.6 fL (9.4-12.4); Platelet Count 166 K/mcL (140-400); Red Blood Count 4.15 M/mcL (3.82-4.97); Red Cell Distribution Width 13.9 % (11.5-14.5)
[2020-12-09 10:27] LABS: BUN/Creatinine Ratio 11 (6-26); Blood Urea Nitrogen 11 mg/dL (6-20); Calcium 9.2 mg/dL (8.6-10.3); Carbon Dioxide 26 mEq/L (23-29); Chloride 108 mEq/L (98-107); Glucose 140 mg/dL (70-105); Osmolality,Calculated 292 (280-300); Potassium 4.1 mEq/L (3.5-5.1); Sodium 140 mEq/L (136-145); eGFR For African Americans > 60 (> 60); eGFR For Non-African Americans 58 (> 60)
[2020-12-09 12:09] VITALS: BP 116/60
== END 2020-12-09 16:00 | disposition home or self-care (01) | DRG 469 ==
LOC: 3ANU 18:02 → EMEROOARM 18:02 → SUATTDRO 23:56 → 3ANU 12-06 00:30
PROVIDERS: ADMIT Student in an Organized Health Care Education/Training Program; ATTEND Family Medicine